=== PATIENT | male | born 1960 | race African-American/Black ===

== ENCOUNTER 2020-03-18 12:10 | Inpatient (IN) | payer OTHER ==
--- NOTE | 2020-03-18 13:01 | BHS.RME ---
Substance Use & Tx History - Substance Use History Alcohol Substance amount: one pint Vodka, beer 2 cans x 12 ounces Frequency of use: Daily Substance route: Oral Date of Last Use: 03/18/20 (Began in his 30s. No seizures. Blackouts, one mos ago. 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photographic artist) Cocaine-Crack Substance amount: $150 Frequency of use: Daily Substance route: Smoking Date of Last Use: 03/17/20 (First use age 27 y) Cocaine- Powder Substance amount: $200-250 Frequency of use: Less than 3 times per week Substance route: Inhalation (ex: sniffing or snorting) Date of Last Use: 03/17/20 (First use age 27 y) Nicotine Substance amount: 1/2 Frequency of use: Daily Substance route: Smoking Date of Last Use: 03/18/20 (began age 20y) - Last Treatment Date of last treatment: many years ago in the 90s Where was last treatment: Detox Physical/Psych/Mental Status - Behavior General Behavior: Increased activity (restlessness, agitation) Eye Contact: Normal - Cooperativeness Cooperativeness: Cooperative - Thinking Thought Processes: Tight Thought content: Future oriented - Physical Health Problems Is patient presently having any pain?: No Does patient presently have any injuries (include location): No Does patient currently have a fever: No CIWA Nausea/Vomitin Muscle Tremors: 3 Anxiety: 1-Mildly Anxious Agitation: 0-Normal Activity Paroxysmal Sweats: 2 Orientation: 0-Oriented Tacttile Disturbances: 1-Very Mild Itch/Numbness Auditory Disturbances: 1-Very Mild Visual Disturbances: 1-Very Mild Sensitivity Headache: 3-Moderate CIWA-Ar Total Score: 15
--- NOTE | 2020-03-18 14:58 | HP ---
CIWA Score Nausea/Vomitin Muscle Tremors: 3 Anxiety: 1-Mildly Anxious Agitation: 0-Normal Activity Paroxysmal Sweats: 2 Orientation: 0-Oriented Tacttile Disturbances: 1-Very Mild Itch/Numbness Auditory Disturbances: 1-Very Mild Visual Disturbances: 1-Very Mild Sensitivity Headache: 3-Moderate CIWA-Ar Total Score: 15 - Admission Criteria OASAS Guidelines: Admission for Medically Managed Detox: Requires at least one of the followin. CIWA greater than 12 2. Seizures within the past 24 hours 3. Delirium tremens within the past 24 hours 4. Hallucinations within the past 24 hours 5. Acute intervention needed for co occurring medical disorder 6. Acute intervention needed for co occurring psychiatric disorder 7. Severe withdrawal that cannot be handled at a lower level of care (continued vomiting, continued diarrhea, abnormal vital signs) requiring intravenous medication and/or fluids 8. Admitting History and Physical - Admission Chief Complaint: Mr. Fraire is a 59 yo man who presents to [facility] stating "I've got a bad alcohol problem and a crack cocaine problem". He requests admission to detox. History of Present Illness: Mr. Fraire is a 59 yo man who presents to [facility] stating "I've got a bad alcohol problem and a crack cocaine problem". He requests admission to detox. He went to [facility] for detox, however, he left but thinks he was treated with Librium He was her on March 14, 2020, but did not meet criteria for admission PMH: right left DVT now on Coumadin, glaucoma PSH/PSYch: none Soc: lives with darren garciaot his place due to "drinking and drugging". Legal: court date Mar 31, 2020 - Substance Use History Alcohol Substance amount: one pint Vodka, beer 2 cans x 12 ounces Frequency of use: Daily Substance route: Oral Date of Last Use: 03/18/20 (Began in his 30s. No seizures. Blackouts, one mos ago. 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[employer]) Cocaine-Crack Substance amount: $150 Frequency of use: Daily Substance route: Smoking Date of Last Use: 03/17/20 (First use age 27 y) Cocaine- Powder Substance amount: $200-250 Frequency of use: Less than 3 times per week Substance route: Inhalation (ex: sniffing or snorting) Date of Last Use: 03/17/20 (First use age 27 y) Nicotine Substance amount: 1/2 Frequency of use: Daily Substance route: Smoking Date of Last Use: 03/18/20 (began age 20y) Benzos: denies use - Last Treatment Date of last treatment: many years ago in the 90s Where was last treatment: Detox History Source: Patient Limitations to Obtaining History: No Limitations - Smoking History Smoking history: Current some day smoker Have you smoked in the past 12 months: Yes Aproximately how many cigarettes per day: 2 Admission ROS S - HPI Allergies/Adverse Reactions: Allergies Allergy/AdvReac Type Severity Reaction Status Date / Time No Known Allergies Allergy Verified 03/18/20 14:09 Exam Limitations: No Limitations - Ebola screening Have you traveled outside of the country in the last 21 days: No Have you been sick,other than usual withdrawal symptoms: No Do you have a fever: No - Review of Systems Constitutional: Changes in sleep (difficulty falling asleep. Lost 25 lbs in the past 2 mos) EENT: reports: Blurred Vision (near sighted, has glasses with him) Respiratory: reports: No Symptoms reported Cardiac: reports: No Symptoms Reported GI: reports: Nausea : reports: No Symptoms Reported Musculoskeletal: reports: Muscle Pain Integumentary: reports: Other (itch, he questions if he has eczema on the left leg: patch lateral ankle) Neuro: reports: Headache (slight this am, went away) Hematology: reports: Blood Clots (on Coumadin, dx 2017) Psychiatric: reports: Anxious Patient History - Patient Medical History Hx Asthma: Yes Hx Chronic Obstructive Pulmonary Disease (COPD): No Hx Cardiac Disorders: No Hx Hypertension: No Hx Seizures: No Hx Diabetes: No Hx Gastrointestinal Disorders: No Hx Genitourinary Disorders: No Hx Sexually Transmitted Disorders: No Hx Renal Disease (ESRD): No Hx Depression: Yes Hx Suicide Attempt: No Hx Schizophrenia: No - Patient Surgical History Past Surgical History: No Hx Neurologic Surgery: No Hx Cataract Extraction: No Hx Cardiac Surgery: No Hx Lung Surgery: No Hx Breast Surgery: No Hx Breast Biopsy: No Hx Abdominal Surgery: No Hx Appendectomy: No Hx Cholecystectomy: No Hx Genitourinary Surgery: No Hx Section: No Hx Orthopedic Surgery: No Anesthesia Reaction: No - PPD History Previous Implant?: Yes (patient has positive ppd. needs xray) - Reproductive History Patient : No - Smoking Cessation Smoking history: Current some day smoker Have you smoked in the past 12 months: Yes Aproximately how many cigarettes per day: 10 Cigars Per Day: 0 Hx Chewing Tobacco Use: No Initiated information on smoking cessation: Yes 'Breaking Loose' booklet given: 03/18/20 - Substances abused Alcohol Substance route: Oral Frequency: Daily Amount used: 1 pint of vodka Age of first use: 32 Date of last use: 03/18/20 Cocaine Substance route: Smoking Frequency: Daily Amount used: 300.00 twice a week Age of first use: 32 Date of last use: 03/17/20 Admission Physical Exam [facility] - Physical General Appearance: Yes: No Apparent Distress, Nourished, Appropriately Dressed, Anxious HEENTM: Yes: EOMI, Hearing grossly Normal, Normocephalic, Normal Voice Respiratory: Yes: Lungs Clear, Normal Breath Sounds, No Respiratory Distress, No Accessory Muscle Use Neck: Yes: Within Normal Limits, Supple Breast: Yes: Breast Exam Deferred Cardiology: Yes: Regular Rhythm, Regular Rate, S1, S2 Abdominal: Yes: Normal Bowel Sounds, Non Tender, Flat, Soft Genitourinary: Yes: Other (deferred) Back: Yes: Normal Inspection Musculoskeletal: Yes: Gait Steady Extremities: Yes: Normal Inspection, Non-Tender Neurological: Yes: Alert, Normal Response Integumentary: Yes: Other (small patch of dry/flaky skin left lateral ankle ~1", hyperpigmented) - Diagnostic (1) Alcohol dependence with withdrawal, uncomplicated Current Visit: Yes Status: Acute (2) Cocaine dependence Current Visit: Yes Status: Acute Qualifiers: Substance use status: uncomplicated Qualified Code(s): F14.20 - Cocaine dependence, uncomplicated (3) Nicotine dependence Current Visit: Yes Status: Acute Qualifiers: Nicotine product type: cigarettes Substance use status: uncomplicated Qualified Code(s): F17.210 - Nicotine dependence, cigarettes, uncomplicated (4) History of DVT (deep vein thrombosis) Current Visit: Yes Status: Acute Cleared for Admission [facility] - Detox or Rehab [facility] Level of Care: Medically Managed Detox Regimen/Protocol: Librium Breathalyzer - Breathalyzer Breathalyzer: 0 Urine Drug Screen - Test Device Lot number: [id number] Expiration date: 03/10/22 - Control Is test valid?: Yes - Results Drug screen NEGATIVE: No Urine drug screen results: PYIUSH-Cocaine, BZO-Benzodiazepines Inpatient Rehab Admission - Rehab Decision to Admit Inpatient rehab admission?: No
[2020-03-18] MEDS ORDERED: MAGNESIUM HYDROX 2400MG/30ML ORAL SUSPENSION 30 ML CUP PO PRN (15:02)
[2020-03-18] MEDS ORDERED: IBUPROFEN 400 MG TABLET (FP) PO PRN (15:02)
[2020-03-18] MEDS ORDERED: chlordiazePOXIDE HCL 25 MG CAPSULE PO PRN (15:02)
[2020-03-18] MEDS ORDERED: BISMUTH SUBSALICYLATE 524 MG/30 ML UD PO PRN (15:02)
[2020-03-18] MEDS ORDERED: ONDANSETRON *ODT* 4 MG TABLET SL PRN (15:02)
[2020-03-18] MEDS ORDERED: ACETAMINOPHEN 325 MG TABLET (FP) PO PRN ×2 (15:02)
[2020-03-18] MEDS ORDERED: MENTHOL/PHENOL 1 EACH UD MM PRN (15:02)
[2020-03-18] MEDS ORDERED: MAG HYDROX/AL HYDROX/SIMETH 30 ML UNIT-DOSE CUP PO PRN (15:02)
[2020-03-18] MEDS ORDERED: NICOTINE POLACRILEX 2 MG GUM BUC PRN (15:02)
[2020-03-18] MEDS ORDERED: METHOCARBAMOL 500 MG TABLET PO PRN (15:02)
[2020-03-18] MEDS ORDERED: MAGNESIUM CITRATE 300 ML BOTTLE PO PRN (15:02)
[2020-03-18 15:57] VITALS: BMI 23.3
[2020-03-18] MEDS ORDERED: WARFARIN NA 7.5 MG TABLET (FP) PO SCH (17:00)
[2020-03-18 17:10] LABS: HEMOGLOBIN 15.1 GM/dL (11.7-16.9); MCH 30.1 pg (25.7-33.7); MCHC 33.6 g/dl (32.0-35.9); MEAN CELL VOLUME 89.9 fl (80-96); MEAN PLT VOLUME 8.2 fl (7.5-11.1); PLATELET COUNT 219 K/MM3 (134-434); RBC 5.01 M/mm3 (4.00-5.60); RDW 14.2 % (11.9-15.9); WHITE BLOOD COUNT 6.5 K/mm3 (4.0-10.0)
[2020-03-18 17:15] LABS: ALBUMIN 3.7 g/dl (3.4-5.0); BILIRUBIN,TOTAL 0.6 mg/dL (0.2-1); CREATININE 1.1 mg/dL (0.55-1.3); TOT PROT 6.9 g/dl (6.4-8.2)
[2020-03-18 17:17] LABS: INR 1.2 (0.83-1.09); PROTHROMBIN TIME (PATIENT) 14.2 SEC (9.7-13.0)
[2020-03-18] MEDS: chlordiazePOXIDE HCL 25 MG CAPSULE PO SCH ×2 (17:33→22:08)
[2020-03-18] MEDS: NICOTINE 14 MG/24 HOURS TOPICAL PATCH TD SCH (17:37)
[2020-03-18] MEDS ORDERED: WARFARIN NA 2.5 MG TABLET PO SCH ×2 (17:59→20:00)
[2020-03-18] MEDS: hydrOXYzine PAMOATE 25 MG CAPSULE (FP) PO SCH ×2 (20:17→22:08)
[2020-03-18] MEDS ORDERED: BRIMONIDINE TARTRATE OU SCH (22:00)
[2020-03-18] MEDS: THIAMINE HCL 100 MG TABLET (FP) PO SCH (22:08)
[2020-03-18] MEDS: MELATONIN 5 MG TABLETS PO SCH (22:08)
[2020-03-18] MEDS: BRIMONIDINE TARTRATE 0.2% OPHTHALMIC 5 ML BOTTLE OU SCH (22:40)
[2020-03-19] MEDS: hydrOXYzine PAMOATE 25 MG CAPSULE (FP) PO SCH ×5 (06:18→22:13)
[2020-03-19] MEDS: chlordiazePOXIDE HCL 25 MG CAPSULE PO SCH ×4 (06:18→22:13)
[2020-03-19] MEDS: BRIMONIDINE TARTRATE 0.2% OPHTHALMIC 5 ML BOTTLE OU SCH ×2 (10:18→22:12)
[2020-03-19] MEDS: PRENATAL VITAMINS W/ FOLIC ACID TABLET (FP) PO SCH (10:18)
[2020-03-19] MEDS: NICOTINE 14 MG/24 HOURS TOPICAL PATCH TD SCH (10:20)
[2020-03-19] MEDS ORDERED: PNEUMOC 13-VAL CONJ-DIP CRM/PF 0.5 ML DISP.SYRIN IM ONE (12:00)
--- NOTE | 2020-03-19 13:30 | PN ---
[facility] CIWA - CIWA Score Nausea/Vomitin-Mild Nausea/No Vomiting Muscle Tremors: 2 Anxiety: 2 Agitation: 2 Paroxysmal Sweats: No Perspiration Orientation: 1-Uncertain about Date Tacttile Disturbances: 0-None Auditory Disturbances: 0-None Visual Disturbances: 0-None Headache: 1-Very Mild CIWA-Ar Total Score: 9 S Progress Note (SOAP) Subjective: alert,irritable,anxious,interrupted sleep,tremor,aching pain in the body Objective: 03/19/20 13:27 Vital Signs Temperature 97.1 F L 03/19/20 08:47 Pulse Rate 75 03/19/20 08:47 Respiratory Rate 16 03/19/20 08:47 Blood Pressure 105/64 03/19/20 08:47 O2 Sat by Pulse Oximetry (%) 99 03/19/20 05:28 Laboratory Last Values WBC 6.5 K/mm3 (4.0-10.0) 03/18/20 15:00 RBC 5.01 M/mm3 (4.00-5.60) 03/18/20 15:00 Hgb 15.1 GM/dL (11.7-16.9) 03/18/20 15:00 Hct 45.0 % (35.4-49) 03/18/20 15:00 MCV 89.9 fl (80-96) 03/18/20 15:00 MCH 30.1 pg (25.7-33.7) 03/18/20 15:00 MCHC 33.6 g/dl (32.0-35.9) 03/18/20 15:00 RDW 14.2 % (11.9-15.9) 03/18/20 15:00 Plt Count 219 K/MM3 (134-434) 03/18/20 15:00 MPV 8.2 fl (7.5-11.1) 03/18/20 15:00 PT with INR 14.20 SEC (9.7-13.0) H 03/18/20 15:00 INR 1.20 (0.83-1.09) H 03/18/20 15:00 Sodium 145 mmol/L (136-145) 03/18/20 15:00 Potassium 4.0 mmol/L (3.5-5.1) 03/18/20 15:00 Chloride 110 mmol/L (98-107) H 03/18/20 15:00 Carbon Dioxide 30 mmol/L (21-32) 03/18/20 15:00 Anion Gap 5 MMOL/L (8-16) L 03/18/20 15:00 BUN 12.0 mg/dL (7-18) 03/18/20 15:00 Creatinine 1.1 mg/dL (0.55-1.3) 03/18/20 15:00 Est GFR (CKD-EPI)AfAm 85.91 03/18/20 15:00 Est GFR (CKD-EPI)NonAf 74.12 03/18/20 15:00 Random Glucose 98 mg/dL (74-106) 03/18/20 15:00 Calcium 9.0 mg/dL (8.5-10.1) 03/18/20 15:00 Total Bilirubin 0.6 mg/dL (0.2-1) 03/18/20 15:00 AST 21 U/L (15-37) 03/18/20 15:00 ALT 22 U/L (13-61) 03/18/20 15:00 Alkaline Phosphatase 67 U/L (45-117) 03/18/20 15:00 Total Protein 6.9 g/dl (6.4-8.2) 03/18/20 15:00 Albumin 3.7 g/dl (3.4-5.0) 03/18/20 15:00 Syphilis Serology Non-reactive (NONREACTIVE) 03/18/20 15:00 COVID-19 (KARLI) Not detected (Not Detected) 03/18/20 15:00 HIV Ag/Ab Combo Qual Negative (NEGATIVE) 03/18/20 15:00 Assessment: 03/19/20 13:28 withdrawal symptom Plan: continue detox librium regimen,history of dvt on coumatine 7,5 mg po daily,will repeat inr in am,close monitoring
--- NOTE | 2020-03-19 14:48 | EKG ---
Test Reason : Blood Pressure : / mmHG Vent. Rate : 085 BPM Atrial Rate : 085 BPM P-R Int : 154 ms QRS Dur : 076 ms QT Int : 382 ms P-R-T Axes : 070 052 046 degrees QTc Int : 454 ms NORMAL SINUS RHYTHM NORMAL ECG NO PREVIOUS ECGS AVAILABLE Confirmed by JULIETA KENYON, BLANCHE ([id number]) on 03/19/2020 2:47:33 PM Referred By: HANNAH ARCE Confirmed By:BLANCHE RENDON MD
[2020-03-19] MEDS: WARFARIN NA 7.5 MG TABLET (FP) PO SCH (18:20)
[2020-03-19] MEDS: THIAMINE HCL 100 MG TABLET (FP) PO SCH (22:13)
[2020-03-19] MEDS: MELATONIN 5 MG TABLETS PO SCH (22:13)
[2020-03-20] MEDS: hydrOXYzine PAMOATE 25 MG CAPSULE (FP) PO SCH ×5 (05:11→22:41)
[2020-03-20] MEDS: chlordiazePOXIDE HCL 25 MG CAPSULE PO SCH ×4 (05:11→22:41)
--- NOTE | 2020-03-20 10:12 | PN ---
S CIWA - CIWA Score Nausea/Vomitin-Mild Nausea/No Vomiting Muscle Tremors: 2 Anxiety: 2 Agitation: 2 Paroxysmal Sweats: 1-Minimal Palms Moist Orientation: 0-Oriented Tacttile Disturbances: 1-Very Mild Itch/Numbness Auditory Disturbances: 0-None Visual Disturbances: 0-None Headache: 1-Very Mild CIWA-Ar Total Score: 10 S Progress Note (SOAP) Subjective: alert,irritable,anxious,interrupted sleep,tremor,pain in the body Objective: 03/20/20 13:58 Vital Signs Temperature 98.4 F 03/20/20 12:52 Pulse Rate 108 H 03/20/20 12:52 Respiratory Rate 20 03/20/20 12:52 Blood Pressure 121/74 03/20/20 12:52 O2 Sat by Pulse Oximetry (%) 100 03/20/20 12:52 Laboratory Results - last 24 hr 03/20/20 08:00 PT with INR 17.80 H INR 1.50 H Assessment: 03/20/20 13:58 withdrawal symptom Plan: continue detox librium regimen,continue coumadin 7.5 mg po daily
[2020-03-20] MEDS: PRENATAL VITAMINS W/ FOLIC ACID TABLET (FP) PO SCH (10:26)
[2020-03-20] MEDS: BRIMONIDINE TARTRATE 0.2% OPHTHALMIC 5 ML BOTTLE OU SCH ×2 (10:27→22:40)
[2020-03-20] MEDS: NICOTINE 14 MG/24 HOURS TOPICAL PATCH TD SCH (10:28)
[2020-03-20 11:46] LABS: INR 1.5 (0.83-1.09); PROTHROMBIN TIME (PATIENT) 17.8 SEC (9.7-13.0)
[2020-03-20] MEDS: WARFARIN NA 7.5 MG TABLET (FP) PO SCH (18:09)
[2020-03-20] MEDS: THIAMINE HCL 100 MG TABLET (FP) PO SCH (22:41)
[2020-03-20] MEDS: MELATONIN 5 MG TABLETS PO SCH (22:41)
[2020-03-21] MEDS ORDERED: chlordiazePOXIDE HCL 10 MG CAPSULE PO PRN
[2020-03-21] MEDS: hydrOXYzine PAMOATE 25 MG CAPSULE (FP) PO SCH ×5 (05:42→22:30)
[2020-03-21] MEDS: chlordiazePOXIDE HCL 10 MG CAPSULE PO SCH ×4 (05:42→22:30)
[2020-03-21] MEDS: BRIMONIDINE TARTRATE 0.2% OPHTHALMIC 5 ML BOTTLE OU SCH ×2 (10:22→22:31)
[2020-03-21] MEDS: PRENATAL VITAMINS W/ FOLIC ACID TABLET (FP) PO SCH (10:22)
[2020-03-21] MEDS: NICOTINE 14 MG/24 HOURS TOPICAL PATCH TD SCH (10:22)
--- NOTE | 2020-03-21 10:51 | PN ---
S CIWA - CIWA Score Nausea/Vomitin-No Nausea/No Vomiting Muscle Tremors: None Anxiety: 3 Agitation: 0-Normal Activity Paroxysmal Sweats: 3 Orientation: 0-Oriented Tacttile Disturbances: 0-None Auditory Disturbances: 0-None Visual Disturbances: 0-None Headache: 2-Mild CIWA-Ar Total Score: 8 BHS Progress Note (SOAP) Subjective: c/o anxiety, sweats, and headache. Objective: 03/21/20 10:49 Vital Signs 03/21/20 03/21/20 05:32 08:35 Temperature 97.1 F L 97.1 F L Pulse Rate 75 84 Respiratory 18 18 Rate Blood Pressure 106/66 123/71 O2 Sat by Pulse 99 Oximetry (%) Laboratory Last Values WBC 6.5 K/mm3 (4.0-10.0) 03/18/20 15:00 RBC 5.01 M/mm3 (4.00-5.60) 03/18/20 15:00 Hgb 15.1 GM/dL (11.7-16.9) 03/18/20 15:00 Hct 45.0 % (35.4-49) 03/18/20 15:00 MCV 89.9 fl (80-96) 03/18/20 15:00 MCH 30.1 pg (25.7-33.7) 03/18/20 15:00 MCHC 33.6 g/dl (32.0-35.9) 03/18/20 15:00 RDW 14.2 % (11.9-15.9) 03/18/20 15:00 Plt Count 219 K/MM3 (134-434) 03/18/20 15:00 MPV 8.2 fl (7.5-11.1) 03/18/20 15:00 PT with INR 17.80 SEC (9.7-13.0) H 03/20/20 08:00 INR 1.50 (0.83-1.09) H 03/20/20 08:00 Sodium 145 mmol/L (136-145) 03/18/20 15:00 Potassium 4.0 mmol/L (3.5-5.1) 03/18/20 15:00 Chloride 110 mmol/L (98-107) H 03/18/20 15:00 Carbon Dioxide 30 mmol/L (21-32) 03/18/20 15:00 Anion Gap 5 MMOL/L (8-16) L 03/18/20 15:00 BUN 12.0 mg/dL (7-18) 03/18/20 15:00 Creatinine 1.1 mg/dL (0.55-1.3) 03/18/20 15:00 Est GFR (CKD-EPI)AfAm 85.91 03/18/20 15:00 Est GFR (CKD-EPI)NonAf 74.12 03/18/20 15:00 Random Glucose 98 mg/dL (74-106) 03/18/20 15:00 Calcium 9.0 mg/dL (8.5-10.1) 03/18/20 15:00 Total Bilirubin 0.6 mg/dL (0.2-1) 03/18/20 15:00 AST 21 U/L (15-37) 03/18/20 15:00 ALT 22 U/L (13-61) 03/18/20 15:00 Alkaline Phosphatase 67 U/L (45-117) 03/18/20 15:00 Total Protein 6.9 g/dl (6.4-8.2) 03/18/20 15:00 Albumin 3.7 g/dl (3.4-5.0) 03/18/20 15:00 Syphilis Serology Non-reactive (NONREACTIVE) 03/18/20 15:00 COVID-19 (KARLI) Not detected (Not Detected) 03/18/20 15:00 HIV Ag/Ab Combo Qual Negative (NEGATIVE) 03/18/20 15:00 Labs noted. Assessment: 03/21/20 10:50 AOX3 and in no acute respiratory distress. Full ROM, ambulating in the unit. Withdrawal symptoms. Plan: continue detox.
[2020-03-21] MEDS: WARFARIN NA 7.5 MG TABLET (FP) PO SCH (18:09)
[2020-03-21] MEDS: THIAMINE HCL 100 MG TABLET (FP) PO SCH (22:31)
[2020-03-21] MEDS: MELATONIN 5 MG TABLETS PO SCH (22:31)
[2020-03-22] MEDS: chlordiazePOXIDE HCL 10 MG CAPSULE PO SCH ×2 (05:30→17:48)
[2020-03-22] MEDS: hydrOXYzine PAMOATE 25 MG CAPSULE (FP) PO SCH ×5 (05:30→22:24)
[2020-03-22] MEDS: PRENATAL VITAMINS W/ FOLIC ACID TABLET (FP) PO SCH (10:31)
[2020-03-22] MEDS: NICOTINE 14 MG/24 HOURS TOPICAL PATCH TD SCH (10:31)
[2020-03-22] MEDS: BRIMONIDINE TARTRATE 0.2% OPHTHALMIC 5 ML BOTTLE OU SCH ×2 (10:31→22:23)
--- NOTE | 2020-03-22 11:17 | PN ---
S CIWA - CIWA Score Nausea/Vomitin-No Nausea/No Vomiting Muscle Tremors: 1-None Visible, but [place] Anxiety: 1-Mildly Anxious Agitation: 0-Normal Activity Paroxysmal Sweats: No Perspiration Orientation: 0-Oriented Tacttile Disturbances: 0-None Auditory Disturbances: 0-None Visual Disturbances: 1-Very Mild Sensitivity Headache: 1-Very Mild CIWA-Ar Total Score: 4 BHS Progress Note (SOAP) Subjective: 59 years old male admitted on 03/18/20 for alcohol withdrawal sx management treating with librium detox regiment Laboratory Tests 03/18/20 03/18/20 03/18/20 15:00 15:00 15:00 WBC 6.5 RBC 5.01 Hgb 15.1 Hct 45.0 MCV 89.9 MCH 30.1 MCHC 33.6 RDW 14.2 Plt Count 219 MPV 8.2 PT with INR INR Sodium 145 Potassium 4.0 Chloride 110 H Carbon Dioxide 30 Anion Gap 5 L BUN 12.0 Creatinine 1.1 Est GFR (CKD-EPI)AfAm 85.91 Est GFR (CKD-EPI)NonAf 74.12 Random Glucose 98 Calcium 9.0 Total Bilirubin 0.6 AST 21 ALT 22 Alkaline Phosphatase 67 Total Protein 6.9 Albumin 3.7 Syphilis Serology COVID-19 (KARLI) HIV Ag/Ab Combo Qual Negative 03/18/20 03/18/20 03/18/20 15:00 15:00 15:00 WBC RBC Hgb Hct MCV MCH MCHC RDW Plt Count MPV PT with INR 14.20 H INR 1.20 H Sodium Potassium Chloride Carbon Dioxide Anion Gap BUN Creatinine Est GFR (CKD-EPI)AfAm Est GFR (CKD-EPI)NonAf Random Glucose Calcium Total Bilirubin AST ALT Alkaline Phosphatase Total Protein Albumin Syphilis Serology Non-reactive COVID-19 (KARLI) Not detected HIV Ag/Ab Combo Qual 03/20/20 08:00 WBC RBC Hgb Hct MCV MCH MCHC RDW Plt Count MPV PT with INR 17.80 H INR 1.50 H Sodium Potassium Chloride Carbon Dioxide Anion Gap BUN Creatinine Est GFR (CKD-EPI)AfAm Est GFR (CKD-EPI)NonAf Random Glucose Calcium Total Bilirubin AST ALT Alkaline Phosphatase Total Protein Albumin Syphilis Serology COVID-19 (KARLI) HIV Ag/Ab Combo Qual taking coumadine inr below therapeutic level mr tovar agrees to return to primary care provider for coumadin adjustment Objective: 03/22/20 11:19 Vital Signs - 24 hr 03/21/20 03/21/20 03/21/20 12:19 16:47 20:37 Temperature 97.1 F L 97.5 F L 97.3 F L Pulse Rate 93 H 114 H 72 Respiratory 18 18 18 Rate Blood Pressure 110/69 112/67 125/66 O2 Sat by Pulse 100 100 Oximetry (%) 03/22/20 03/22/20 06:57 08:22 Temperature 97.1 F L 96.9 F L Pulse Rate 65 77 Respiratory 18 18 Rate Blood Pressure 101/65 104/66 O2 Sat by Pulse 97 Oximetry (%) Active Medications Generic Name Dose Route Start Last Admin Trade Name Freq PRN Reason Stop Dose Admin Acetaminophen 650 mg 03/18/20 15:02 Tylenol - PO Q6H PRN PAIN LEVEL 4 - 6 Acetaminophen 650 mg 03/18/20 15:02 Tylenol - PO Q6H PRN FEVER Al Hydroxide/Mg Hydroxide 30 ml 03/18/20 15:02 Mylanta Oral Suspension - PO Q6H PRN DYSPEPSIA Brimonidine Tartrate 1 drop 03/18/20 22:00 03/22/20 10:31 Alphagan 0.2% - OU 1 drop BID JODIE Administration Chlordiazepoxide HCl 10 mg 03/22/20 05:00 03/22/20 05:30 Librium - PO 03/22/20 17:01 10 mg Q12H JODIE Administration Chlordiazepoxide HCl 10 mg 03/23/20 05:00 Librium - PO 03/23/20 05:01 ONCE@0500 ONE Eucalyptus/Menthol/Phenol/Sorbitol 1 each 03/18/20 15:02 Cepastat Lozenge - MM 03/24/20 15:02 Q4H PRN SORE THROAT Hydroxyzine Pamoate 25 mg 03/18/20 18:00 03/22/20 10:31 Vistaril - PO 03/24/20 15:02 25 mg Q4HWA JODIE Administration Magnesium Citrate 300 ml 03/18/20 15:02 Citroma - PO Q48H PRN CONSTIPATION Magnesium Hydroxide 30 ml 03/18/20 15:02 Milk Of Magnesia - PO PRN PRN CONSTIPATION Melatonin 5 mg 03/18/20 22:00 03/21/20 22:31 Melatonin PO 5 mg HS JODIE Administration Methocarbamol 500 mg 03/18/20 15:02 Robaxin - PO 03/24/20 15:02 Q6H PRN MUSCLE SPASMS Nicotine 14 mg 03/18/20 15:15 03/22/20 10:31 Nicoderm Patch - TD Not Given DAILY [facility] Nicotine Polacrilex 2 mg 03/18/20 15:02 Nicorette Gum - BUC Q2H PRN NICOTINE REPLACEMENT RX Ondansetron HCl 4 mg 03/18/20 15:02 Zofran Odt - SL 03/24/20 15:04 Q8H PRN Nausea/Vomiting Multivit/Folic Acid/Iron 1 tab 03/19/20 10:00 03/22/20 10:31 Vitamins (Sjr) - PO 1 tab DAILY JODIE Administration Thiamine HCl 100 mg 03/18/20 22:00 03/21/20 22:31 Vitamin B1 - PO 100 mg HS JODIE Administration Warfarin Sodium 7.5 mg 03/19/20 17:00 03/21/20 18:09 Coumadin - PO 03/24/20 17:01 7.5 mg DAILY@1700 JODIE Administration Assessment: 03/22/20 11:20 alcohol withdrawal coumadine Plan: librium regiment inr below therapeutic level due to non compliance discussing risks of coumadine none compliance
[2020-03-22] MEDS: WARFARIN NA 7.5 MG TABLET (FP) PO SCH (17:49)
[2020-03-22] MEDS: MELATONIN 5 MG TABLETS PO SCH (22:23)
[2020-03-22] MEDS: THIAMINE HCL 100 MG TABLET (FP) PO SCH (22:23)
[2020-03-23] MEDS ORDERED: chlordiazePOXIDE HCL 10 MG CAPSULE PO ONE (05:00)
[2020-03-23] MEDS: hydrOXYzine PAMOATE 25 MG CAPSULE (FP) PO SCH ×2 (05:35→10:10)
[2020-03-23 06:40] VITALS: BP 96/53; PULSE 75; TEMP 98
[2020-03-23] MEDS: BRIMONIDINE TARTRATE 0.2% OPHTHALMIC 5 ML BOTTLE OU SCH (10:09)
[2020-03-23] MEDS: NICOTINE 14 MG/24 HOURS TOPICAL PATCH TD SCH (10:09)
[2020-03-23] MEDS: PRENATAL VITAMINS W/ FOLIC ACID TABLET (FP) PO SCH (10:09)
--- NOTE | 2020-03-23 11:45 | PN ---
[facility] CIWA - CIWA Score Nausea/Vomitin-No Nausea/No Vomiting Muscle Tremors: None Anxiety: 1-Mildly Anxious Agitation: 0-Normal Activity Paroxysmal Sweats: No Perspiration Orientation: 0-Oriented Tacttile Disturbances: 0-None Auditory Disturbances: 0-None Visual Disturbances: 0-None Headache: 0-None Present CIWA-Ar Total Score: 1 S Progress Note (SOAP) Subjective: alert,no complaint Objective: 03/23/20 11:40 Vital Signs Temperature 98.0 F 03/23/20 06:39 Pulse Rate 75 03/23/20 06:39 Respiratory Rate 16 03/23/20 06:39 Blood Pressure 96/53 L 03/23/20 06:39 O2 Sat by Pulse Oximetry (%) 100 03/23/20 06:39 Assessment: 03/23/20 11:41 detox completed,no withdrawal symptom Plan: patient is stable for discharge today,follow up with after care program as arrangement [facility]
--- NOTE | 2020-03-23 11:50 | DS ---
[facility] Detox Discharge Summary Admission Date: 03/18/20 Discharge Date: 03/23/20 - History Present History: Alcohol Dependence, Cocaine Dependence Additional Comments: alert,oriented x 3 ambulation on the unit lung clear on auscultation bilaterally abdomen soft,no distension,no pain or tenderness no pain,no swelling of the leg detox completed,no withdrawal symptom stable for discharge today follow up with after care program [facility] as arrangement total time spending on discharge 35 minutes Pertinent Past History: history of dvt nicotine dependence glaucoma both eyes - Physical Exam Results Vital Signs: Vital Signs Temperature 98.0 F 03/23/20 06:39 Pulse Rate 75 03/23/20 06:39 Respiratory Rate 16 03/23/20 06:39 Blood Pressure 96/53 L 03/23/20 06:39 O2 Sat by Pulse Oximetry (%) 100 03/23/20 06:39 Pertinent Admission Physical Exam Findings: withdrawal signs and symptom Laboratory Last Values WBC 6.5 K/mm3 (4.0-10.0) 03/18/20 15:00 RBC 5.01 M/mm3 (4.00-5.60) 03/18/20 15:00 Hgb 15.1 GM/dL (11.7-16.9) 03/18/20 15:00 Hct 45.0 % (35.4-49) 03/18/20 15:00 MCV 89.9 fl (80-96) 03/18/20 15:00 MCH 30.1 pg (25.7-33.7) 03/18/20 15:00 MCHC 33.6 g/dl (32.0-35.9) 03/18/20 15:00 RDW 14.2 % (11.9-15.9) 03/18/20 15:00 Plt Count 219 K/MM3 (134-434) 03/18/20 15:00 MPV 8.2 fl (7.5-11.1) 03/18/20 15:00 PT with INR 17.80 SEC (9.7-13.0) H 03/20/20 08:00 INR 1.50 (0.83-1.09) H 03/20/20 08:00 Sodium 145 mmol/L (136-145) 03/18/20 15:00 Potassium 4.0 mmol/L (3.5-5.1) 03/18/20 15:00 Chloride 110 mmol/L (98-107) H 03/18/20 15:00 Carbon Dioxide 30 mmol/L (21-32) 03/18/20 15:00 Anion Gap 5 MMOL/L (8-16) L 03/18/20 15:00 BUN 12.0 mg/dL (7-18) 03/18/20 15:00 Creatinine 1.1 mg/dL (0.55-1.3) 03/18/20 15:00 Est GFR (CKD-EPI)AfAm 85.91 03/18/20 15:00 Est GFR (CKD-EPI)NonAf 74.12 03/18/20 15:00 Random Glucose 98 mg/dL (74-106) 03/18/20 15:00 Calcium 9.0 mg/dL (8.5-10.1) 03/18/20 15:00 Total Bilirubin 0.6 mg/dL (0.2-1) 03/18/20 15:00 AST 21 U/L (15-37) 03/18/20 15:00 ALT 22 U/L (13-61) 03/18/20 15:00 Alkaline Phosphatase 67 U/L (45-117) 03/18/20 15:00 Total Protein 6.9 g/dl (6.4-8.2) 03/18/20 15:00 Albumin 3.7 g/dl (3.4-5.0) 03/18/20 15:00 Syphilis Serology Non-reactive (NONREACTIVE) 03/18/20 15:00 COVID-19 (KARLI) Not detected (Not Detected) 03/18/20 15:00 HIV Ag/Ab Combo Qual Negative (NEGATIVE) 03/18/20 15:00 Vital Signs Temperature 98.0 F 03/23/20 06:39 Pulse Rate 75 03/23/20 06:39 Respiratory Rate 16 03/23/20 06:39 Blood Pressure 96/53 L 03/23/20 06:39 O2 Sat by Pulse Oximetry (%) 100 03/23/20 06:39 - Treatment Hospital Course: Detox Protocol Followed, Detoxed Safely, Responded well, Discharged Condition Good, Rehab Referral Accepted Patient has Accepted a Rehab Referral to: [facility] - Medication Discharge Medications: Ambulatory Orders Brimonidine Tartrate [Alphagan 0.15% -] 1 drop TID 03/18/20 Warfarin Na 7.5 tab PO DAILY 03/18/20 Fluticasone Propionate [Flovent Diskus] 250 mcg IH HS 03/22/20 - Diagnosis (1) Alcohol dependence with withdrawal, uncomplicated Current Visit: Yes Status: Acute (2) Cocaine dependence Current Visit: Yes Status: Acute Qualifiers: Substance use status: uncomplicated Qualified Code(s): F14.20 - Cocaine dependence, uncomplicated (3) History of DVT (deep vein thrombosis) Current Visit: Yes Status: Acute (4) Nicotine dependence Current Visit: Yes Status: Acute Qualifiers: Nicotine product type: cigarettes Substance use status: uncomplicated Qualified Code(s): F17.210 - Nicotine dependence, cigarettes, uncomplicated (5) Glaucoma Current Visit: Yes Status: Acute - AMA Did Patient Leave Against Medical Advice: No
== END 2020-03-23 13:50 | disposition other institution (70) | DRG 774 ==
LOC: YASAS 12:10 → Y3N 15:17
PROVIDERS: ADMIT Allergy & Immunology; ATTEND Allergy & Immunology
PROC: HZ2ZZZZ Detoxification Services for Substance Abuse Treatment (ICD-10-PCS; principal; 2020-03-18)
DX: F10.230 Alcohol dependence with withdrawal, uncomplicated (principal); F14.20 Cocaine dependence, uncomplicated; F17.210 Nicotine dependence, cigarettes, uncomplicated; H40.9 Unspecified glaucoma; R76.11 Nonspecific reaction to tuberculin skin test without active tuberculosis; Z86.718 Personal history of other venous thrombosis and embolism; Z79.01 Long term (current) use of anticoagulants
CPT/HCPCS: 36415; 71045-TC-FY; 80053; 85027; 85610; 86780; 87389; 93005; 93010; U0003

== ENCOUNTER 2020-03-23 13:51 | Inpatient (IN) | payer OTHER ==
[2020-03-23] MEDS ORDERED: NICOTINE POLACRILEX 2 MG GUM BC PRN (14:25)
[2020-03-23] MEDS ORDERED: MAG HYDROX/AL HYDROX/SIMETH 30 ML UNIT-DOSE CUP PO PRN (14:25)
[2020-03-23] MEDS ORDERED: ACETAMINOPHEN 325 MG TABLET (FP) PO PRN (14:25)
[2020-03-23] MEDS ORDERED: guaiFENesin 200 MG/10 ML 10 ML UNIT-DOSE CUPS PO PRN (14:25)
[2020-03-23] MEDS ORDERED: LOPERAMIDE HCL 2 MG CAPSULE PO PRN (14:25)
[2020-03-23] MEDS ORDERED: P-EPHED 60MG/TRIPROLIDI 2.5MG TABLET PO PRN (14:25)
[2020-03-23] MEDS ORDERED: MAGNESIUM HYDROX 2400MG/30ML ORAL SUSPENSION 30 ML CUP PO PRN (14:25)
[2020-03-23] MEDS ORDERED: MAGNESIUM CITRATE 300 ML BOTTLE PO PRN (14:25)
[2020-03-23] MEDS ORDERED: IBUPROFEN 400 MG TABLET (FP) PO PRN (14:25)
--- NOTE | 2020-03-23 14:25 | HP ---
J LUIS KENYON Rehab Assess/Revision - Admission History Admitted to Rehab from: [facility] Date of Admission to Rehab: 03/23/20 - Findings Detox History & Physical reviewed: Yes Concur with findings: Yes Comments/Additional Findings: transferred from detox to rehab admission as per protocol Inpatient Rehab Admission - Rehab Decision to Admit Inpatient rehab admission?: Yes - Initial Determination Are CD services needed?: Yes Free of communicable disease: Yes Not in need of hospitalization: Yes - Rehab Admission Criteria Previous failed treatment: Yes Poor recovery environment: Yes Comorbidities: Yes Lacks judgement: Yes Patient is meeting Inpatient Rehab admission criteria:: Yes
[2020-03-23] MEDS ORDERED: WARFARIN NA 5 MG, WARFARIN NA 2.5 MG PO SCH (17:00)
[2020-03-23] MEDS ORDERED: WARFARIN NA PO SCH (17:00)
[2020-03-23] MEDS: WARFARIN NA 7.5 MG TABLET (FP) PO SCH (17:38)
[2020-03-23] MEDS: BRIMONIDINE TARTRATE 0.2% OPHTHALMIC 5 ML BOTTLE OU SCH (21:10)
[2020-03-23] MEDS: THIAMINE HCL 100 MG TABLET (FP) PO SCH (21:14)
[2020-03-23] MEDS ORDERED: ALBUTEROL SO4 HFA INHALER IH PRN (21:26)
--- NOTE | 2020-03-23 21:27 | PN ---
[facility] Progress Note Note: pt requesting inhalers for asthma and Vistaril for anxiety . Vital Signs - 24 hr 03/23/20 03/23/20 14:16 20:19 Temperature 97.7 F Pulse Rate 98 H Respiratory 18 Rate Blood Pressure 123/62 O2 Sat by Pulse 95 97 Oximetry (%) P : meds ordered
[2020-03-23] MEDS ORDERED: PATIENT'S OWN MEDICATION (NON-FORMULARY) (Fluticasone Propionate [Flovent Diskus] 250 MCG) IH SCH (22:00)
[2020-03-23] MEDS ORDERED: MELATONIN 5 MG TABLETS PO SCH (22:00)
--- NOTE | 2020-03-24 09:28 | CONSULT ---
[facility] Psychiatric Consult - Data Date of interview: 03/24/20 Admission source: [facility] Identifying data: Patient is a 59 year old black male, father of one, unemployed, homeless, and is supported by unemployment benefits. This is patient's first admission to rehab at [facility]. Patient admitted to for alcohol and cocaine dependence. Substance Abuse History: Smoking Cessation. Smoking history: Current some day smoker. Have you smoked in the past 12 months: Yes. Aproximately how many cigarettes per day: 10. Cigars Per Day: 0. Hx Chewing Tobacco Use: No. Initiated information on smoking cessation: Yes. 'Breaking Loose' booklet given: 03/18/20. - Substances abused. Alcohol. Substance route: Oral. Frequency: Daily. Amount used: 1 pint of vodka. Age of first use: 32. Date of last use: 03/18/20. Cocaine. Substance route: Smoking. Frequency: Daily. Amount used: 300.00 twice a week. Age of first use: 32. Date of last use: 03/17/20 Medical History: eczema Psychiatric History: Patient denies history of psychiatric hospitalization, outpatient care and suicide attempt. At present patient reports difficulty sleeping. Physical/Sexual Abuse/Trauma History: denies. Mental Status Exam - Mental Status Exam Alert and Oriented to: Time, Place, Person Cognitive Function: Good Patient Appearance: Well Groomed Mood: Hopeful Affect: Appropriate Patient Behavior: Cooperative Speech Pattern: Appropriate Voice Loudness: Normal Thought Process: Goal Oriented Hallucinations: Denies Suicidal Ideation: Denies Homicidal Ideation: Denies Insight/Judgement: Poor Sleep: Poorly Appetite: Fair Muscle strength/Tone: Normal Gait/Station: Normal Psychiatric Findings - Problem List ([place] 1, 2,3) (1) Substance-induced sleep disorder Current Visit: Yes Status: Acute (2) Cocaine dependence Current Visit: No Status: Acute Qualifiers: Substance use status: uncomplicated Qualified Code(s): F14.20 - Cocaine dependence, uncomplicated (3) Nicotine dependence Current Visit: Yes Status: Acute Qualifiers: Nicotine product type: cigarettes Substance use status: uncomplicated Qualified Code(s): F17.210 - Nicotine dependence, cigarettes, uncomplicated (4) Alcohol use disorder Current Visit: Yes Status: Acute - Initial Treatment Plan Initial Treatment Plan: Psychoeducation provided. Detoxification in progress. 1) Will d/c Melatonin 5mg 2) Will order Melatonin 10mg HS PRN. Benefits and side effects discussed. Verbal consent given.
[2020-03-24] MEDS ORDERED: WARFARIN NA PO SCH (10:00)
[2020-03-24] MEDS: BRIMONIDINE TARTRATE 0.2% OPHTHALMIC 5 ML BOTTLE OU SCH ×2 (10:19→21:01)
[2020-03-24] MEDS: PRENATAL VITAMINS W/ FOLIC ACID TABLET (FP) PO SCH (10:19)
[2020-03-24] MEDS: NICOTINE 14 MG/24 HOURS TOPICAL PATCH TD SCH (10:20)
[2020-03-24] MEDS ORDERED: PNEUMOC 13-VAL CONJ-DIP CRM/PF 0.5 ML DISP.SYRIN IM ONE (12:00)
[2020-03-24] MEDS ORDERED: PNEUMOCOCCAL 23 VACCINE 0.5 ML VIAL IM ONE (12:00)
--- NOTE | 2020-03-24 12:26 | PN ---
[facility] Progress Note Note: Pt is a 59 y/o male admitted to rehab from [address] yesterday. Pt has a PMHx of DVT- on Coumadin; Glaucoma- on eye drops. pt reports today hx of eczema with itchy area on right lower leg. Pt reports he has primary care with Dr. charity Mata @ [address] [place] [address] [place], [place] and has been going except lately when he was busy using drugs and alcohol. Pt states he will follow up with his doctor when he discharges. Vital Signs - 24 hr 03/23/20 03/23/20 03/24/20 14:16 20:19 06:17 Temperature 97.7 F 97.1 F L Pulse Rate 98 H 81 Respiratory 18 16 Rate Blood Pressure 123/62 116/77 O2 Sat by Pulse 95 97 96 Oximetry (%) Alert o x 3 nad oob ambulating with steady gait skin:dry, intact Pt Personal hx Eczema Hydrocortisone cream1 % apply as directed
[2020-03-24 13:09] LABS: INR 1.94 (0.83-1.09)
[2020-03-24] MEDS: HYDROCORTISONE 1% TOPICAL CREAM 30 GM TUBE TP SCH ×2 (13:27→21:05)
[2020-03-24] MEDS: WARFARIN NA 7.5 MG TABLET (FP) PO SCH (17:49)
[2020-03-24] MEDS: MELATONIN 5 MG TABLETS PO SCH (21:04)
[2020-03-24] MEDS: THIAMINE HCL 100 MG TABLET (FP) PO SCH (21:04)
[2020-03-24] MEDS: MOMETASONE FUROATE 220 MCG/IH INHALER IH SCH (22:42)
[2020-03-25] MEDS: BRIMONIDINE TARTRATE 0.2% OPHTHALMIC 5 ML BOTTLE OU SCH ×2 (10:00→21:03)
[2020-03-25] MEDS: PRENATAL VITAMINS W/ FOLIC ACID TABLET (FP) PO SCH (10:01)
[2020-03-25] MEDS: HYDROCORTISONE 1% TOPICAL CREAM 30 GM TUBE TP SCH ×2 (10:01→21:08)
[2020-03-25] MEDS: NICOTINE 14 MG/24 HOURS TOPICAL PATCH TD SCH (10:01)
--- NOTE | 2020-03-25 10:34 | PN ---
[facility] Progress Note Note: A call was placed to pt's home pharmacy-[facility] [place] [address], this morning and verified pts Coumadin dose. Pharmacist reports that pt was on 7.5 mg daily and was recently decreased to 6mg po daily on 02/04/20. Last picked up Rx on 02/06/20 and was not seen since then; states pt has 3 more refills on his Rx. She cofirmed that pt has a primary care provider/prescriber, Dr. Oswaldo Mata on [address], [place] who oversees pt's care. Today, pt confirmed dr. Mata decreased Coumadin from 7.5 mg to 6mg daily after evaluating his drinking patterns and episodes. pt states he is concerned about DVT and wants to be safe and prevent the consequences of DVT "like going into my lungs. I could ". Pt is interested in knowing his INR levels. Denies any discomfort. Vital Signs - 24 hr 03/24/20 03/25/20 20:56 06:21 Temperature 97.5 F L Pulse Rate 81 Respiratory 18 Rate Blood Pressure 132/73 O2 Sat by Pulse 96 96 Oximetry (%) Laboratory Tests 03/24/20 03/24/20 08:30 08:30 PT with INR 23.00 H INR 1.94 H Hep C Ab Diagnostic <0.1 Laboratory Last Values PT with INR 25.90 SEC (9.7-13.0) H 03/25/20 08:10 INR 2.18 (0.83-1.09) H 03/25/20 08:10 Hep C Ab Diagnostic <0.1 s/co ratio (0.0-0.9) 03/24/20 08:30 INR improved to 2.18 today Hep C Ab Diagnostic wnl(Negative) result Alert o x 3 nad oob ambulating with steady gait. Hx DVT with treatment d/w pt the need to f/u with his primary care provider soon as he is discharged from rehab for medical management wich includes coumadin monitoring..
[2020-03-25 12:09] LABS: INR 2.18 (0.83-1.09); PROTHROMBIN TIME (PATIENT) 25.9 SEC (9.7-13.0)
[2020-03-25] MEDS: WARFARIN NA 7.5 MG TABLET (FP) PO SCH (17:27)
[2020-03-25] MEDS: MOMETASONE FUROATE 220 MCG/IH INHALER IH SCH ×2 (21:04→22:43)
[2020-03-25] MEDS: MELATONIN 5 MG TABLETS PO SCH (21:08)
[2020-03-25] MEDS: THIAMINE HCL 100 MG TABLET (FP) PO SCH (21:08)
[2020-03-26] MEDS: BRIMONIDINE TARTRATE 0.2% OPHTHALMIC 5 ML BOTTLE OU SCH ×2 (10:08→21:05)
[2020-03-26] MEDS: NICOTINE 14 MG/24 HOURS TOPICAL PATCH TD SCH (10:08)
[2020-03-26] MEDS: PRENATAL VITAMINS W/ FOLIC ACID TABLET (FP) PO SCH (10:08)
[2020-03-26] MEDS: hydrOXYzine PAMOATE 25 MG CAPSULE (FP) PO PRN (10:09)
[2020-03-26] MEDS: HYDROCORTISONE 1% TOPICAL CREAM 30 GM TUBE TP SCH ×2 (10:09→21:05)
[2020-03-26] MEDS: WARFARIN NA 7.5 MG TABLET (FP) PO SCH (17:38)
[2020-03-26] MEDS: MOMETASONE FUROATE 220 MCG/IH INHALER IH SCH (21:05)
[2020-03-26] MEDS: MELATONIN 5 MG TABLETS PO SCH (21:05)
[2020-03-26] MEDS: THIAMINE HCL 100 MG TABLET (FP) PO SCH (21:06)
[2020-03-27] MEDS: BRIMONIDINE TARTRATE 0.2% OPHTHALMIC 5 ML BOTTLE OU SCH ×2 (10:18→22:12)
[2020-03-27] MEDS: NICOTINE 14 MG/24 HOURS TOPICAL PATCH TD SCH (10:19)
[2020-03-27] MEDS: HYDROCORTISONE 1% TOPICAL CREAM 30 GM TUBE TP SCH ×2 (10:19→22:12)
[2020-03-27] MEDS: PRENATAL VITAMINS W/ FOLIC ACID TABLET (FP) PO SCH (10:19)
[2020-03-27] MEDS: hydrOXYzine PAMOATE 25 MG CAPSULE (FP) PO PRN (10:20)
[2020-03-27 10:26] LABS: INR 1.99 (0.83-1.09); PROTHROMBIN TIME (PATIENT) 23.7 SEC (9.7-13.0)
--- NOTE | 2020-03-27 15:18 | PN ---
[facility] Progress Note Note: Laboratory Tests 03/24/20 03/24/20 03/25/20 08:30 08:30 08:10 PT with INR 23.00 H 25.90 H INR 1.94 H 2.18 H Hep C Ab Diagnostic <0.1 03/27/20 07:50 PT with INR 23.70 H INR 1.99 H Hep C Ab Diagnostic Repeat INR on 03/30/20
[2020-03-27] MEDS: WARFARIN NA 7.5 MG TABLET (FP) PO SCH (17:11)
[2020-03-27] MEDS: MELATONIN 5 MG TABLETS PO SCH (22:12)
[2020-03-27] MEDS: THIAMINE HCL 100 MG TABLET (FP) PO SCH (22:13)
[2020-03-27] MEDS: MOMETASONE FUROATE 220 MCG/IH INHALER IH SCH (22:13)
[2020-03-28] MEDS: PRENATAL VITAMINS W/ FOLIC ACID TABLET (FP) PO SCH (09:35)
[2020-03-28] MEDS: NICOTINE 14 MG/24 HOURS TOPICAL PATCH TD SCH (09:36)
[2020-03-28] MEDS: HYDROCORTISONE 1% TOPICAL CREAM 30 GM TUBE TP SCH ×2 (09:36→21:08)
[2020-03-28] MEDS: BRIMONIDINE TARTRATE 0.2% OPHTHALMIC 5 ML BOTTLE OU SCH ×2 (09:37→21:07)
[2020-03-28] MEDS ORDERED: WARFARIN NA 2 MG TABLET PO SCH (14:00)
[2020-03-28] MEDS: WARFARIN NA 2 MG TABLET PO SCH (17:06)
[2020-03-28] MEDS: MELATONIN 5 MG TABLETS PO SCH (21:08)
[2020-03-28] MEDS: MOMETASONE FUROATE 220 MCG/IH INHALER IH SCH (21:08)
[2020-03-28] MEDS: THIAMINE HCL 100 MG TABLET (FP) PO SCH (21:08)
[2020-03-29] MEDS: hydrOXYzine PAMOATE 25 MG CAPSULE (FP) PO PRN ×2 (09:21→21:11)
[2020-03-29] MEDS: PRENATAL VITAMINS W/ FOLIC ACID TABLET (FP) PO SCH (09:21)
[2020-03-29] MEDS: BRIMONIDINE TARTRATE 0.2% OPHTHALMIC 5 ML BOTTLE OU SCH ×2 (09:22→21:11)
[2020-03-29] MEDS: HYDROCORTISONE 1% TOPICAL CREAM 30 GM TUBE TP SCH ×2 (09:22→21:13)
[2020-03-29] MEDS: NICOTINE 14 MG/24 HOURS TOPICAL PATCH TD SCH (09:22)
[2020-03-29] MEDS: WARFARIN NA 2 MG TABLET PO SCH ×2 (17:04→19:20)
[2020-03-29] MEDS: THIAMINE HCL 100 MG TABLET (FP) PO SCH (21:11)
[2020-03-29] MEDS: MELATONIN 5 MG TABLETS PO SCH (21:12)
[2020-03-29] MEDS: MOMETASONE FUROATE 220 MCG/IH INHALER IH SCH (21:12)
[2020-03-30] MEDS: NICOTINE 14 MG/24 HOURS TOPICAL PATCH TD SCH (09:16)
[2020-03-30] MEDS: HYDROCORTISONE 1% TOPICAL CREAM 30 GM TUBE TP SCH ×2 (09:17→21:06)
[2020-03-30] MEDS: PRENATAL VITAMINS W/ FOLIC ACID TABLET (FP) PO SCH (09:17)
[2020-03-30] MEDS: BRIMONIDINE TARTRATE 0.2% OPHTHALMIC 5 ML BOTTLE OU SCH ×2 (09:18→21:06)
[2020-03-30 10:57] LABS: INR 1.83 (0.83-1.09); PROTHROMBIN TIME (PATIENT) 21.7 SEC (9.7-13.0)
[2020-03-30] MEDS: WARFARIN NA 7.5 MG TABLET (FP) PO SCH (17:22)
[2020-03-30] MEDS: MELATONIN 5 MG TABLETS PO SCH (21:06)
[2020-03-30] MEDS: THIAMINE HCL 100 MG TABLET (FP) PO SCH (21:06)
[2020-03-30] MEDS: MOMETASONE FUROATE 220 MCG/IH INHALER IH SCH (21:06)
[2020-03-31] MEDS: NICOTINE 14 MG/24 HOURS TOPICAL PATCH TD SCH (10:16)
[2020-03-31] MEDS: HYDROCORTISONE 1% TOPICAL CREAM 30 GM TUBE TP SCH ×2 (10:16→21:00)
[2020-03-31] MEDS: BRIMONIDINE TARTRATE 0.2% OPHTHALMIC 5 ML BOTTLE OU SCH ×2 (10:16→20:59)
[2020-03-31] MEDS: PRENATAL VITAMINS W/ FOLIC ACID TABLET (FP) PO SCH (10:16)
--- NOTE | 2020-03-31 10:31 | PN ---
[facility] Progress Note Note: Coumadin 7.5 mg po daily reordered on 03/30/20 Laboratory Tests 03/24/20 03/24/20 03/25/20 08:30 08:30 08:10 PT with INR 23.00 H 25.90 H INR 1.94 H 2.18 H Hep C Ab Diagnostic <0.1 03/27/20 03/30/20 07:50 07:45 PT with INR 23.70 H 21.70 H INR 1.99 H 1.83 H Hep C Ab Diagnostic Alert o x 3 nad, no c/o chest and resp discomfort oob ambulating with steady gait. P:Repeat INR on 04/02/20.
[2020-03-31] MEDS: WARFARIN NA 7.5 MG TABLET (FP) PO SCH (17:28)
[2020-03-31] MEDS: MOMETASONE FUROATE 220 MCG/IH INHALER IH SCH (20:59)
[2020-03-31] MEDS: THIAMINE HCL 100 MG TABLET (FP) PO SCH (21:00)
[2020-03-31] MEDS: MELATONIN 5 MG TABLETS PO SCH (21:00)
[2020-04-01] MEDS: BRIMONIDINE TARTRATE 0.2% OPHTHALMIC 5 ML BOTTLE OU SCH ×2 (10:12→21:00)
[2020-04-01] MEDS: HYDROCORTISONE 1% TOPICAL CREAM 30 GM TUBE TP SCH ×2 (10:13→21:01)
[2020-04-01] MEDS: hydrOXYzine PAMOATE 25 MG CAPSULE (FP) PO PRN ×2 (10:13→21:01)
[2020-04-01] MEDS: PRENATAL VITAMINS W/ FOLIC ACID TABLET (FP) PO SCH (10:13)
[2020-04-01] MEDS: NICOTINE 14 MG/24 HOURS TOPICAL PATCH TD SCH (10:13)
[2020-04-01] MEDS ORDERED: ARTIFICIAL TEARS (POLYVINYL ALCOHOL) OPTH DROPS OU PRN (10:57)
[2020-04-01] MEDS: WARFARIN NA 7.5 MG TABLET (FP) PO SCH (17:15)
[2020-04-01] MEDS: MOMETASONE FUROATE 220 MCG/IH INHALER IH SCH (21:00)
[2020-04-01] MEDS: THIAMINE HCL 100 MG TABLET (FP) PO SCH (21:01)
[2020-04-01] MEDS: MELATONIN 5 MG TABLETS PO SCH (21:01)
[2020-04-02] MEDS: NICOTINE 14 MG/24 HOURS TOPICAL PATCH TD SCH (09:41)
[2020-04-02] MEDS: HYDROCORTISONE 1% TOPICAL CREAM 30 GM TUBE TP SCH ×2 (09:41→22:06)
[2020-04-02] MEDS: PRENATAL VITAMINS W/ FOLIC ACID TABLET (FP) PO SCH (09:41)
[2020-04-02] MEDS: BRIMONIDINE TARTRATE 0.2% OPHTHALMIC 5 ML BOTTLE OU SCH ×2 (09:42→22:05)
[2020-04-02 11:04] LABS: INR 2.3 (0.83-1.09); PROTHROMBIN TIME (PATIENT) 27.4 SEC (9.7-13.0)
--- NOTE | 2020-04-02 11:50 | PN ---
[facility] Progress Note Note: Laboratory Tests 03/24/20 03/24/20 03/25/20 08:30 08:30 08:10 PT with INR 23.00 H 25.90 H INR 1.94 H 2.18 H Hep C Ab Diagnostic <0.1 03/27/20 03/30/20 04/02/20 07:50 07:45 07:35 PT with INR 23.70 H 21.70 H 27.40 H INR 1.99 H 1.83 H 2.30 H Hep C Ab Diagnostic INR back to Therapeutic level Maintain on Coumadin 7.5 mg po daily
[2020-04-02] MEDS: WARFARIN NA 7.5 MG TABLET (FP) PO SCH (17:44)
[2020-04-02] MEDS: MOMETASONE FUROATE 220 MCG/IH INHALER IH SCH (22:06)
[2020-04-02] MEDS: THIAMINE HCL 100 MG TABLET (FP) PO SCH (22:07)
[2020-04-02] MEDS: MELATONIN 5 MG TABLETS PO SCH (22:07)
[2020-04-03] MEDS: NICOTINE 14 MG/24 HOURS TOPICAL PATCH TD SCH (10:22)
[2020-04-03] MEDS: BRIMONIDINE TARTRATE 0.2% OPHTHALMIC 5 ML BOTTLE OU SCH ×2 (10:22→21:05)
[2020-04-03] MEDS: HYDROCORTISONE 1% TOPICAL CREAM 30 GM TUBE TP SCH ×2 (10:22→21:05)
[2020-04-03] MEDS: PRENATAL VITAMINS W/ FOLIC ACID TABLET (FP) PO SCH (10:23)
[2020-04-03] MEDS: WARFARIN NA 7.5 MG TABLET (FP) PO SCH (17:15)
[2020-04-03] MEDS: MOMETASONE FUROATE 220 MCG/IH INHALER IH SCH (21:04)
[2020-04-03] MEDS: THIAMINE HCL 100 MG TABLET (FP) PO SCH (21:05)
[2020-04-03] MEDS: MELATONIN 5 MG TABLETS PO SCH (21:06)
[2020-04-04] MEDS: BRIMONIDINE TARTRATE 0.2% OPHTHALMIC 5 ML BOTTLE OU SCH ×2 (09:07→21:03)
[2020-04-04] MEDS: NICOTINE 14 MG/24 HOURS TOPICAL PATCH TD SCH (09:07)
[2020-04-04] MEDS: HYDROCORTISONE 1% TOPICAL CREAM 30 GM TUBE TP SCH ×2 (09:07→21:03)
[2020-04-04] MEDS: PRENATAL VITAMINS W/ FOLIC ACID TABLET (FP) PO SCH (09:07)
--- NOTE | 2020-04-04 17:45 | PN ---
[facility] Progress Note Note: cou,suly 7.5 mg po daily,inr in am
[2020-04-04] MEDS: WARFARIN NA 7.5 MG TABLET (FP) PO SCH (17:54)
[2020-04-04] MEDS: MOMETASONE FUROATE 220 MCG/IH INHALER IH SCH (21:03)
[2020-04-04] MEDS: THIAMINE HCL 100 MG TABLET (FP) PO SCH (21:04)
[2020-04-04] MEDS: MELATONIN 5 MG TABLETS PO SCH (21:04)
[2020-04-05] MEDS: BRIMONIDINE TARTRATE 0.2% OPHTHALMIC 5 ML BOTTLE OU SCH ×2 (09:34→21:09)
[2020-04-05] MEDS: PRENATAL VITAMINS W/ FOLIC ACID TABLET (FP) PO SCH (09:34)
[2020-04-05] MEDS: NICOTINE 14 MG/24 HOURS TOPICAL PATCH TD SCH (09:35)
[2020-04-05] MEDS: HYDROCORTISONE 1% TOPICAL CREAM 30 GM TUBE TP SCH ×2 (09:35→21:10)
[2020-04-05 10:17] LABS: INR 2.06 (0.83-1.09); PROTHROMBIN TIME (PATIENT) 24.5 SEC (9.7-13.0)
[2020-04-05] MEDS: WARFARIN NA 7.5 MG TABLET (FP) PO SCH (17:15)
[2020-04-05] MEDS: MOMETASONE FUROATE 220 MCG/IH INHALER IH SCH (21:09)
[2020-04-05] MEDS: THIAMINE HCL 100 MG TABLET (FP) PO SCH (21:10)
[2020-04-05] MEDS: MELATONIN 5 MG TABLETS PO SCH (21:10)
[2020-04-06 06:55] VITALS: BP 140/71; PULSE 80; TEMP 97.8
[2020-04-06] MEDS: HYDROCORTISONE 1% TOPICAL CREAM 30 GM TUBE TP SCH (09:05)
[2020-04-06] MEDS: NICOTINE 14 MG/24 HOURS TOPICAL PATCH TD SCH (09:05)
[2020-04-06] MEDS: PRENATAL VITAMINS W/ FOLIC ACID TABLET (FP) PO SCH (09:05)
[2020-04-06] MEDS: BRIMONIDINE TARTRATE 0.2% OPHTHALMIC 5 ML BOTTLE OU SCH (09:06)
--- NOTE | 2020-04-06 12:38 | DS ---
[facility] Rehab Discharge Summary - [facility] Rehab Discharge Summary Admission Date: 03/23/20 Discharge Date: 04/06/20 - History Present History: Alcohol dependence, Cocaine dependence Pertinent Past History: Asthma Glaucoma DVT Leg - Discharge Physical Exam Vital Signs: Vital Signs Temperature 97.8 F 04/06/20 06:22 Pulse Rate 80 04/06/20 06:22 Respiratory Rate 18 04/06/20 06:22 Blood Pressure 140/71 04/06/20 06:22 O2 Sat by Pulse Oximetry (%) 96 04/06/20 06:22 Pertinent Admission Physical Exam Findings: Laboratory Tests 03/24/20 03/24/20 03/25/20 08:30 08:30 08:10 PT with INR 23.00 H 25.90 H INR 1.94 H 2.18 H Hep C Ab Diagnostic <0.1 03/27/20 03/30/20 04/02/20 07:50 07:45 07:35 PT with INR 23.70 H 21.70 H 27.40 H INR 1.99 H 1.83 H 2.30 H Hep C Ab Diagnostic 04/05/20 07:34 PT with INR 24.50 H INR 2.06 H Hep C Ab Diagnostic Pt was reminded to take copy of his lab reults to his PCP during his visit. - Treatment Discharge Condition: Discharge condition good, Rehabilitated safely, Responded well, Outpatient referral accepted Hospital Course: Pt is a 59 y/o male admitted to rehab from [address] Pt has a PMHx of DVT- on Coumadin 7.5 mg po daily; Glaucoma- on eye drops. Hx of eczema. Pt reports he has primary care with Dr. charity Mata @ [address] [place] [address] and has been going except lately when he was busy using drugs and alcohol. Pt states he will follow up with his doctor when he discharges today. - Medication Discharge Medications: Ambulatory Orders Warfarin Na 7.5 tab PO DAILY 03/18/20 Fluticasone Propionate [Flovent Diskus] 250 mcg IH HS 03/22/20 Brimonidine Tartrate [Alphagan 0.2% -] 1 drop OU BID drops 03/23/20 - Medication-Assisted Treatment (MAT) Medication-Assisted Treatment (MAT): No - Discharge Instructions Diet, activity, other medical instructions: Diet:Regular Activity: oob ad stone Other medical instructions:follow up with PCP, Dr. Charity Mata for medical management. - Diagnosis (1) Alcohol use disorder Status: Chronic (2) Cocaine dependence Status: Chronic Qualifiers: Substance use status: uncomplicated Qualified Code(s): F14.20 - Cocaine dependence, uncomplicated (3) Glaucoma Status: Chronic (4) History of DVT (deep vein thrombosis) Status: Chronic (5) Nicotine dependence Status: Chronic Qualifiers: Nicotine product type: cigarettes Substance use status: uncomplicated Qualified Code(s): F17.210 - Nicotine dependence, cigarettes, uncomplicated - Follow-up Referral Minutes to complete discharge: 20 - AMA Did Patient Leave Against Medical Advice: No Additional Comments: Pt reports he has own medications bottles Coumadin 7.5 mg po daily in security safe. Pt has been instructed to follow up with his primary care doctor for coumadin monitoring and medical management.
== END 2020-04-06 09:20 | disposition home or self-care (01) | DRG 772 ==
LOC: YASAS 13:51 → Y5N 13:53
PROVIDERS: ADMIT Allergy & Immunology; ATTEND Allergy & Immunology
PROC: HZ42ZZZ Group Counseling for Substance Abuse Treatment, Cognitive-Behavioral (ICD-10-PCS; principal; 2020-03-23)
DX: F10.20 Alcohol dependence, uncomplicated (principal); F14.20 Cocaine dependence, uncomplicated; F17.210 Nicotine dependence, cigarettes, uncomplicated; F19.282 Other psychoactive substance dependence with psychoactive substance-induced sleep disorder; H40.9 Unspecified glaucoma; L30.9 Dermatitis, unspecified; Z86.718 Personal history of other venous thrombosis and embolism; Z79.01 Long term (current) use of anticoagulants; Z56.0 Unemployment, unspecified; Z59.0 Homelessness
CPT/HCPCS: 36415; 85610; 86803

== ENCOUNTER 2020-07-11 14:06 | Inpatient (IN) | payer OTHER ==
[2020-07-11 17:32] VITALS: BMI 23.6
[2020-07-11] MEDS ORDERED: METHOCARBAMOL 500 MG TABLET PO PRN (17:32)
[2020-07-11] MEDS ORDERED: MAGNESIUM HYDROX 2400MG/30ML ORAL SUSPENSION 30 ML CUP PO PRN (17:32)
[2020-07-11] MEDS ORDERED: MELATONIN 5 MG TABLETS PO PRN (17:32)
[2020-07-11] MEDS ORDERED: MENTHOL/PHENOL 1 EACH UD MM PRN (17:32)
[2020-07-11] MEDS ORDERED: hydrOXYzine PAMOATE 25 MG CAPSULE (FP) PO PRN (17:32)
[2020-07-11] MEDS ORDERED: MAG HYDROX/AL HYDROX/SIMETH 30 ML UNIT-DOSE CUP PO PRN (17:32)
[2020-07-11] MEDS ORDERED: ACETAMINOPHEN 325 MG TABLET (FP) PO PRN ×2 (17:32)
[2020-07-11] MEDS ORDERED: NICOTINE POLACRILEX 2 MG GUM BUC PRN (17:32)
[2020-07-11] MEDS ORDERED: ONDANSETRON *ODT* 4 MG TABLET SL PRN (17:32)
[2020-07-11] MEDS ORDERED: MAGNESIUM CITRATE 300 ML BOTTLE PO PRN (17:32)
[2020-07-11] MEDS ORDERED: BISMUTH SUBSALICYLATE 524 MG/30 ML UD PO PRN (17:32)
[2020-07-11] MEDS ORDERED: diazePAM 5 MG TABLET PO PRN (17:34)
[2020-07-11] MEDS ORDERED: ALBUTEROL SO4 HFA INHALER IH PRN (19:45)
[2020-07-11] MEDS ORDERED: PATIENT'S OWN MEDICATION (NON-FORMULARY) (Brimonidine Tartrate/Timolol [Combigan 0.2%-0.5% OU SCH (22:00)
[2020-07-11] MEDS: diazePAM 5 MG TABLET PO SCH (22:31)
[2020-07-11] MEDS: THIAMINE HCL 100 MG TABLET (FP) PO SCH (22:31)
[2020-07-11] MEDS: BRIMONIDINE TARTRATE 0.2% OPHTHALMIC 5 ML BOTTLE OU SCH (22:32)
[2020-07-11] MEDS: TIMOLOL 0.5% OPHTHALMIC SOL 5 ML BOTTLE OU SCH (22:32)
[2020-07-11] MEDS: MOMETASONE FUROATE 220 MCG/IH INHALER IH SCH (22:33)
[2020-07-12] MEDS: diazePAM 5 MG TABLET PO SCH ×4 (05:53→22:21)
[2020-07-12] MEDS: PRENATAL VITAMINS W/ FOLIC ACID TABLET (FP) PO SCH (10:30)
[2020-07-12] MEDS: TIMOLOL 0.5% OPHTHALMIC SOL 5 ML BOTTLE OU SCH ×2 (10:30→22:21)
[2020-07-12] MEDS: BRIMONIDINE TARTRATE 0.2% OPHTHALMIC 5 ML BOTTLE OU SCH ×2 (10:31→22:22)
[2020-07-12 11:14] LABS: INR 1.22 (0.83-1.09); PROTHROMBIN TIME (PATIENT) 14.7 SEC (9.7-13.0)
[2020-07-12 11:16] LABS: HEMATOCRIT 43.9 % (35.4-49); MCH 30.5 pg (25.7-33.7); MCHC 34.1 g/dl (32.0-35.9); MEAN CELL VOLUME 89.6 fl (80-96); MEAN PLT VOLUME 8.2 fl (7.5-11.1); PLATELET COUNT 213 K/MM3 (134-434); RDW 14.4 % (11.9-15.9); WHITE BLOOD COUNT 6.1 K/mm3 (4.0-10.0)
[2020-07-12 11:18] LABS: POTASSIUM 4.4 mmol/L (3.5-5.1)
[2020-07-12 11:29] LABS: CALCIUM 8.9 mg/dL (8.5-10.1)
[2020-07-12 11:30] LABS: ALBUMIN 3.2 g/dl (3.4-5.0)
[2020-07-12] MEDS ORDERED: FLUoxetine HCL 20 MG CAPSULE PO SCH (11:30)
[2020-07-12 11:33] LABS: BILIRUBIN,TOTAL 0.7 mg/dL (0.2-1); CREATININE 1.2 mg/dL (0.55-1.3)
[2020-07-12] MEDS: WARFARIN NA 7.5 MG TABLET (FP) PO SCH (17:07)
[2020-07-12] MEDS ORDERED: WARFARIN NA 2.5 MG TABLET PO ONE (18:00)
[2020-07-12] MEDS ORDERED: DIVALPROEX SODIUM 250 MG TABLET E.C. PO SCH (22:00)
[2020-07-12] MEDS ORDERED: traZODone HCL 100 MG TABLET (FP) PO SCH (22:00)
[2020-07-12] MEDS: THIAMINE HCL 100 MG TABLET (FP) PO SCH (22:21)
[2020-07-12] MEDS: MOMETASONE FUROATE 220 MCG/IH INHALER IH SCH (22:22)
[2020-07-13] MEDS: diazePAM 5 MG TABLET PO SCH ×3 (06:17→22:03)
[2020-07-13] MEDS: PRENATAL VITAMINS W/ FOLIC ACID TABLET (FP) PO SCH (10:23)
[2020-07-13] MEDS: BRIMONIDINE TARTRATE 0.2% OPHTHALMIC 5 ML BOTTLE OU SCH ×2 (10:23→22:04)
[2020-07-13] MEDS: TIMOLOL 0.5% OPHTHALMIC SOL 5 ML BOTTLE OU SCH ×2 (10:23→22:02)
[2020-07-13 10:42] LABS: INR 1.33 (0.83-1.09); PROTHROMBIN TIME (PATIENT) 16.2 SEC (9.7-13.0)
[2020-07-13 10:47] LABS: POTASSIUM 4.1 mmol/L (3.5-5.1)
[2020-07-13 10:50] LABS: BLOOD UREA NITROGEN 12.7 mg/dL (7-18); CALCIUM 8.8 mg/dL (8.5-10.1)
[2020-07-13 10:51] LABS: ALBUMIN 3.1 g/dl (3.4-5.0)
[2020-07-13 10:53] LABS: CREATININE 1.3 mg/dL (0.55-1.3)
[2020-07-13 10:54] LABS: BILIRUBIN,TOTAL 0.6 mg/dL (0.2-1); TOT PROT 5.8 g/dl (6.4-8.2)
[2020-07-13] MEDS ORDERED: FLU VACCINE (FLULAVAL) PF 60 MCG/0.5 ML SYRINGE 2020-2021 IM ONE (12:00)
[2020-07-13 15:49] LABS: HIV INTERPRETATION NEGATIVE (NEGATIVE)
[2020-07-13] MEDS: WARFARIN NA 7.5 MG TABLET (FP) PO SCH (17:04)
[2020-07-13] MEDS: THIAMINE HCL 100 MG TABLET (FP) PO SCH (22:02)
[2020-07-13] MEDS: MOMETASONE FUROATE 220 MCG/IH INHALER IH SCH (22:03)
[2020-07-14] MEDS: diazePAM 5 MG TABLET PO SCH ×2 (06:22→17:14)
[2020-07-14] MEDS: TIMOLOL 0.5% OPHTHALMIC SOL 5 ML BOTTLE OU SCH ×2 (10:23→22:13)
[2020-07-14] MEDS: PRENATAL VITAMINS W/ FOLIC ACID TABLET (FP) PO SCH (10:24)
[2020-07-14] MEDS: BRIMONIDINE TARTRATE 0.2% OPHTHALMIC 5 ML BOTTLE OU SCH ×2 (10:25→22:13)
[2020-07-14 10:53] LABS: INR 1.64 (0.83-1.09); PROTHROMBIN TIME (PATIENT) 19.6 SEC (9.7-13.0)
[2020-07-14] MEDS: WARFARIN NA 7.5 MG TABLET (FP) PO SCH (17:13)
[2020-07-14] MEDS: THIAMINE HCL 100 MG TABLET (FP) PO SCH (22:14)
[2020-07-14] MEDS: MOMETASONE FUROATE 220 MCG/IH INHALER IH SCH (22:14)
[2020-07-15] MEDS ORDERED: diazePAM 5 MG TABLET PO ONE (06:00)
[2020-07-15 09:46] VITALS: BP 106/54; PULSE 81; TEMP 97.7
[2020-07-15] MEDS: PRENATAL VITAMINS W/ FOLIC ACID TABLET (FP) PO SCH (09:48)
[2020-07-15] MEDS: TIMOLOL 0.5% OPHTHALMIC SOL 5 ML BOTTLE OU SCH (09:48)
[2020-07-15] MEDS: BRIMONIDINE TARTRATE 0.2% OPHTHALMIC 5 ML BOTTLE OU SCH (09:49)
[2020-07-15 13:28] LABS: ACTIVATED PTT 32.5 SECONDS (25.2-36.5); INR 1.88 (0.83-1.09); PROTHROMBIN TIME (PATIENT) 22.7 SEC (9.7-13.0)
== END 2020-07-15 09:55 | disposition home or self-care (01) | DRG 774 ==
LOC: YASAS 14:06 → Y6N 19:32
PROVIDERS: ADMIT Allergy & Immunology; ATTEND Allergy & Immunology
PROC: HZ2ZZZZ Detoxification Services for Substance Abuse Treatment (ICD-10-PCS; principal; 2020-07-11)
DX: F10.230 Alcohol dependence with withdrawal, uncomplicated (principal); F14.20 Cocaine dependence, uncomplicated; F17.210 Nicotine dependence, cigarettes, uncomplicated; F19.282 Other psychoactive substance dependence with psychoactive substance-induced sleep disorder; H40.9 Unspecified glaucoma; R79.1 Abnormal coagulation profile; R79.89 Other specified abnormal findings of blood chemistry; Z86.718 Personal history of other venous thrombosis and embolism
CPT/HCPCS: 36415; 80053; 85027; 85610; 85730; 86780; 87389; C9803; G0008; Q2036; U0003